=== PATIENT | female | born 1985 | race American Indian/Alaskan Native ===

== ENCOUNTER 2016-06-17 09:33 | Emergency (ER) | payer MEDICAID ==
[2016-06-17 09:59] VITALS: BP 150/96
--- NOTE | 2016-06-17 10:57 | Emergency Department Report ---
ED Female HPI - General Chief complaint: Urogenital-Female Stated complaint: PELVIC PAIN Time Seen by Provider: 06/17/16 10:51 Source: patient Mode of arrival: Ambulatory Limitations: No Limitations - History of Present Illness Initial comments: Patient presents today with lower pelvic pain 3 weeks, denies abdominal pain. She admits to vaginal pain but denies discharge or odor. LMP 05/31/16, she admits to being sexually active, denies nausea, vomiting, fever, chills, back pain. She also denies any lesions or bumps in vaginal area. She describes the pain as constant aching at an 8/10, worse with activity such as running. She does however admit to increased frequency of urination, no burning or pain with urination. MD Complaint: pelvic pain -: Gradual Location: suprapubic, other (vaginal, which she states if her underwear rub against it is painful.) Severity: moderate Severity scale (0 -10): 8 Quality: aching Consistency: constant Improves with: none Are you Now?: No Last Menstrual Period: 05/31/16 EDC: 03/07/17 Associated Symptoms: denies other symptoms - Related Data Sexually active: Yes : 2 Para: 2 Home Medications Medication Instructions Recorded Confirmed Last Taken Topiramate [Topamax] 100 mg PO BID 05/15/15 07/04/15 07/04/15 Previous Rx's Medication Instructions Recorded Last Taken Type traMADol [Ultram] 50 mg PO Q6HR PRN #15 tablet 07/05/15 Unknown Rx Allergies Allergy/AdvReac Type Severity Reaction Status Date / Time tramadol AdvReac Nausea Verified 02/16/15 18:51 ED Review of Systems ROS: Stated complaint: PELVIC PAIN Other details as noted in HPI Constitutional: denies: chills, fever Eyes: denies: eye pain, eye discharge, vision change Respiratory: denies: cough, shortness of breath, wheezing Cardiovascular: denies: chest pain, palpitations Gastrointestinal: denies: abdominal pain, nausea, diarrhea Genitourinary: as per HPI, frequency Musculoskeletal: denies: back pain, joint swelling, arthralgia Skin: denies: rash, lesions Neurological: denies: headache, weakness, paresthesias ED Past Medical Hx - Past Medical History Previous Medical History?: Yes Hx Hypertension: Yes (not on BP med) Hx Headaches / Migraines: Yes (Migraine) Additional medical history: Chronic back pain - Surgical History Past Surgical History?: Yes Additional Surgical History: Bunion RIGHT FOOT REMOVED - Social History Smoking Status: Never Smoker Substance Use Type: Non Opiate Pain - Medications Home Medications: Home Medications Medication Instructions Recorded Confirmed Last Taken Type Topiramate [Topamax] 100 mg PO BID 05/15/15 07/04/15 07/04/15 History traMADol [Ultram] 50 mg PO Q6HR PRN #15 tablet 07/05/15 Unknown Rx ED Physical Exam - General Limitations: No Limitations General appearance: alert, in no apparent distress - Head Head exam: Present: atraumatic, normocephalic - Eye Eye exam: Present: normal appearance - Respiratory Respiratory exam: Present: normal lung sounds bilaterally. Absent: respiratory distress - Cardiovascular Cardiovascular Exam: Present: regular rate, normal rhythm. Absent: systolic murmur, diastolic murmur, rubs, gallop - GI/Abdominal GI/Abdominal exam: Present: soft, normal bowel sounds. Absent: tenderness, guarding, rebound - External exam: Present: normal external exam. Absent: erythema, swelling, lesions, lacerations, bleeding Speculum exam: Present: erythema (vaginal barlow), vaginal discharge (white). Absent: vaginal bleeding, foreign body Bi-manual exam: Present: adnexal tenderness (bilateral). Absent: cervical motion tendernes, adnexal mass - Back Exam Back exam: Present: normal inspection, full ROM. Absent: tenderness, CVA tenderness (R), CVA tenderness (L) - Neurological Exam Neurological exam: Present: alert, oriented X3 - Psychiatric Psychiatric exam: Present: normal affect, normal mood - Skin Skin exam: Present: warm, dry, intact, normal color. Absent: rash ED Course Vital Signs 06/17/16 09:56 Temperature 98.9 F Pulse Rate 117 H Respiratory 18 Rate Blood Pressure 150/96 O2 Sat by Pulse 100 Oximetry ED Medical Decision Making - Medical Decision Making Patient presents with vaginal pain and mild pelvic pain. Urine is wnl, is negative. PE is negative with mild pain with palpation pelvic bilateral and mild bilateral adenexa pain. Awaiting G/C results, wet prep neg. Will refer pt to [facility]. - Differential Diagnosis endometriosis, cystitis Critical Care Time: No Critical care attestation.: If time is entered above; I have spent that time in minutes in the direct care of this critically ill patient, excluding procedure time. ED Disposition Clinical Impression: Vaginal pain, Pelvic pain Disposition: DISCHARGED TO HOME OR SELFCARE Is pt being admited?: No Does the pt Need Aspirin: No Condition: Stable Instructions: Chronic Pelvic Pain in Women (ED) Additional Instructions: Please f/u with a [facility] doctor, f/u in ED if fever, chills, abdominal pain, nausea , vomiting. Referrals: PRIMARY CARE, [Primary Care Provider] - 3-5 Days STACEY PHILLIPS MD [Staff Physician] - 3-5 Days KYRA LANG MD [Staff Physician] - 3-5 Days Forms: Work/School Release Form(ED) Time of Disposition: 12:04
[2016-06-17 11:19] LABS: Bilirubin,Urine NEG (Negative); Blood,Urine NEG (Negative); Ketones,Urine NEG (Negative); Leukocyte Esterase,Urine NEG (Negative); Mucus,Urine FEW /HPF; Nitrite,Urine NEG (Negative); Protein,Urine <15 mg/dL mg/dL (Negative); Urobilinogen,Urine < 2.0 mg/dL (<2.0); WBC,Urine < 1.0 /HPF (0.0-6.0)
== END 2016-06-17 12:22 | disposition home or self-care (01) ==
LOC: ED 09:33
DX: R10.2 Pelvic and perineal pain (principal); I10 Essential (primary) hypertension; G43.909 Migraine, unspecified, not intractable, without status migrainosus; G89.29 Other chronic pain; Z88.8 Allergy status to other drugs, medicaments and biological substances
CPT/HCPCS: 81001; 81025; 87210; 87591; 99284

== ENCOUNTER 2018-01-03 08:32 | Emergency (ER) | payer MEDICAID ==
[2018-01-03 08:39] VITALS: BP 153/97
[2018-01-03] MEDS ORDERED: REGLAN PO ONE (09:41)
[2018-01-03] MEDS ORDERED: BENADRYL PO ONE (09:41)
[2018-01-03] MEDS ORDERED: FIORICET PO ONE (09:41)
[2018-01-03] MEDS ORDERED: DELTASONE PO ONE (09:42)
[2018-01-03] MEDS ORDERED: IMITREX SUB-Q ONE (09:42)
--- NOTE | 2018-01-03 09:46 | Emergency Department Report ---
ED General Adult HPI - General Chief complaint: Headache Stated complaint: BODY ACHE/SEVERE HEADACHE Time Seen by Provider: 01/03/18 09:08 Source: patient Mode of arrival: Ambulatory Limitations: No Limitations - History of Present Illness Initial comments: Patient presents to the emergency room chief complaint of a headache 3 days. Patient describes the headache as being diffuse in nature and feel since like her previous migraines. This is not the worse headache of her life. Patient also complains of upper back pain and states that it may be due to her sleeping awkwardly. Patient also complains of her sinuses acting up causing her to have sore throat. -: Gradual Location: head, back Radiation: non-radiation Severity scale (0 -10): 4 Quality: other (throbbing) Consistency: constant Improves with: none Worsens with: none Associated Symptoms: denies other symptoms Treatments Prior to Arrival: none - Related Data Home Medications Medication Instructions Recorded Confirmed Last Taken Topiramate [Topamax] 100 mg PO BID 05/15/15 07/04/15 07/04/15 Previous Rx's Medication Instructions Recorded Last Taken Type traMADol [Ultram] 50 mg PO Q6HR PRN #15 tablet 07/05/15 Unknown Rx Acetaminophen/Codeine [Tylenol #3] 1 tab PO BID #10 tablet 06/17/16 Unknown Rx Butalb/Acetamin/Caff 50-325-40 1 tab PO Q6HR PRN #20 tab 01/03/18 Unknown Rx [Fioricet] Allergies Allergy/AdvReac Type Severity Reaction Status Date / Time tramadol AdvReac Nausea Verified 02/16/15 18:51 ED Review of Systems ROS: Stated complaint: BODY ACHE/SEVERE HEADACHE Other details as noted in HPI Comment: All other systems reviewed and negative Constitutional: denies: chills, fever Eyes: denies: eye pain, eye discharge, vision change ENT: denies: ear pain, throat pain Respiratory: denies: cough, shortness of breath, wheezing Cardiovascular: denies: chest pain, palpitations Endocrine: no symptoms reported Gastrointestinal: denies: abdominal pain, nausea, diarrhea Genitourinary: denies: urgency, dysuria, discharge Musculoskeletal: denies: back pain, joint swelling, arthralgia Skin: denies: rash, lesions Neurological: denies: headache, weakness, paresthesias Psychiatric: denies: anxiety, depression Hematological/Lymphatic: denies: easy bleeding, easy bruising ED Past Medical Hx - Past Medical History Hx Hypertension: Yes (not on BP med) Hx Headaches / Migraines: Yes (Migraine) Additional medical history: Chronic back pain - Surgical History Additional Surgical History: Bunion RIGHT FOOT REMOVED - Social History Smoking Status: Never Smoker Substance Use Type: None - Medications Home Medications: Home Medications Medication Instructions Recorded Confirmed Last Taken Type Topiramate [Topamax] 100 mg PO BID 05/15/15 07/04/15 07/04/15 History traMADol [Ultram] 50 mg PO Q6HR PRN #15 tablet 07/05/15 Unknown Rx Acetaminophen/Codeine [Tylenol #3] 1 tab PO BID #10 tablet 06/17/16 Unknown Rx Butalb/Acetamin/Caff 50-325-40 1 tab PO Q6HR PRN #20 tab 01/03/18 Unknown Rx [Fioricet] ED Physical Exam - General Limitations: No Limitations General appearance: alert, in no apparent distress - Head Head exam: Present: atraumatic, normocephalic - Eye Eye exam: Present: normal appearance, PERRL, EOMI Pupils: Present: normal accommodation - ENT ENT exam: Present: mucous membranes moist, other (pale mucosa of the pharynx ) - Neck Neck exam: Present: normal inspection - Respiratory Respiratory exam: Present: normal lung sounds bilaterally. Absent: respiratory distress, wheezes, rales, rhonchi - Cardiovascular Cardiovascular Exam: Present: regular rate, normal rhythm. Absent: systolic murmur, diastolic murmur, rubs, gallop - GI/Abdominal GI/Abdominal exam: Present: soft, normal bowel sounds. Absent: distended, tenderness - Extremities Exam Extremities exam: Present: normal inspection - Back Exam Back exam: Present: other (parathoracic tenderness on palpation) - Neurological Exam Neurological exam: Present: alert, oriented X3, CN II-XII intact. Absent: motor sensory deficit - Psychiatric Psychiatric exam: Present: normal affect, normal mood - Skin Skin exam: Present: warm, dry, intact, normal color. Absent: rash ED Course Vital Signs 01/03/18 08:35 Temperature 98.8 F Pulse Rate 94 H Respiratory 18 Rate Blood Pressure 153/97 O2 Sat by Pulse 100 Oximetry ED Medical Decision Making - Medical Decision Making Patient had relief of her headache with medications Discussed with patient that she should take [id number] antihistamines for her sinus congestion Critical care attestation.: If time is entered above; I have spent that time in minutes in the direct care of this critically ill patient, excluding procedure time. ED Disposition Clinical Impression: Headache Disposition: DC-01 TO HOME OR SELFCARE Is pt being admited?: No Does the pt Need Aspirin: No Condition: Undetermined Instructions: Acute Headache (ED) Additional Instructions: return if worse Prescriptions: Butalb/Acetamin/Caff 50-325-40 [Fioricet] 1 tab PO Q6HR PRN #20 tab PRN Reason: Headache Referrals: PRIMARY CARE, [Primary Care Provider] - 3-5 Days CAROLA BARRY MD [Staff Physician] - 3-5 Days [facility] [Provider Group] - 3-5 Days Time of Disposition: 10:33
== END 2018-01-03 10:42 | disposition home or self-care (01) ==
LOC: ED 08:32
DX: G43.909 Migraine, unspecified, not intractable, without status migrainosus (principal); I10 Essential (primary) hypertension; G89.29 Other chronic pain; M54.9 Dorsalgia, unspecified; Z88.8 Allergy status to other drugs, medicaments and biological substances
CPT/HCPCS: 96372; 99282; J7512; J3030